=== PATIENT | male | born 1975 | race Caucasian/White ===

== ENCOUNTER → 2017-02-16 | Outpatient (CLI) | payer OTHER ==
--- NOTE | 2017-02-16 14:24 | DIREP ---
PROCEDURE:XRAY SCOLIOSIS STUDY COMPARISON:None. INDICATIONS:SCOLIOSIS TECHNIQUE:AP images of the spine were provided in 3 separate segments. FINDINGS:4 dextroscoliosis T12-L5 as measured by the method of Navarro. No focal areas of lytic or blastic activity or congenital vertebral anomalies are noted. CONCLUSION:Minimal dextroscoliotic curve T12-L5. No other significant scoliosis. Recommend correlation with clinical exam. I am not certain these images were obtained in standing weight bearing position, which would be the most reliable radiographic technique for scoliosis measurement. Dictated by: Waqas Majano M.D. on 02/16/2017 at 02:20 PM
== END | disposition home or self-care (01) ==
LOC: RAD 09:06
DX: M41.85 Other forms of scoliosis, thoracolumbar region (principal)
CPT/HCPCS: 72081; 72090